=== PATIENT | female | born 1985 | race Hispanic/Latino ===

== ENCOUNTER 2016-11-22 12:41 | Inpatient (IN) | payer MEDICAID, OTHER ==
[2016-11-22 12:41] VITALS: BMI 24.1
--- NOTE | 2016-11-22 13:17 | C.PDOC ---
History Of Present Illness 31 y/o female presents to ED requesting Detox from heroin. Patient is pre- screened and admits to last using Heroin this morning. Patient denies fever, chills, n/v/d or any other complaints at this time. Time Seen by Provider: 11/22/16 12:58 Chief Complaint (Nursing): Substance Abuse History Per: Patient History/Exam Limitations: no limitations Onset/Duration Of Symptoms: Days Current Symptoms Are (Timing): Still Present Suicide/Self Injury Attempted (Context): None Past Medical History Reviewed: Historical Data, Nursing Documentation, Vital Signs Vital Signs: Last Vital Signs Temp 97.8 F 11/22/16 12:45 Pulse 89 11/22/16 15:34 Resp 18 11/22/16 15:34 BP 98/59 L 11/22/16 15:34 Pulse Ox 98 11/22/16 15:57 - Medical History PMH: Back Problems - [facility] Procedures ALCOHOL DETOXIFICATION (01/05/14) APPLICATION OF SPLINT (02/18/07) CLOSE RED-INT FIX FINGER (06/08/98) DETOXIFICATION SERVICES FOR SUBSTANCE ABUSE TREATMENT (04/18/16) INJECT/INFUSE NEC (09/20/05) SUTURE EXT EAR LAC (09/20/05) TETANUS TOXOID ADMINIST (03/01/14) Family History: States: No Known Family Hx - Social History Hx Tobacco Use: Yes Hx Alcohol Use: No Hx Substance Use: Yes - Immunization History Hx Tetanus Toxoid Vaccination: No Hx Influenza Vaccination: No Hx Pneumococcal Vaccination: No Review Of Systems Except As Marked, All Systems Reviewed And Found Negative. Constitutional: Negative for: Fever, Chills Gastrointestinal: Negative for: Nausea, Vomiting, Diarrhea Skin: Negative for: Rash Psych: Negative for: Anxiety, Suicidal ideation Physical Exam - Physical Exam Appears: Non-toxic, No Acute Distress Skin: Normal Color, Warm Head: Atraumatic Oral Mucosa: Moist Chest: Symmetrical Cardiovascular: Rhythm Regular Respiratory: Normal Breath Sounds, No Rales, No Rhonchi, No Wheezing Gastrointestinal/Abdominal: Soft, No Tenderness, No Guarding, No Rebound Neurological/Psych: Oriented x3, Normal Speech Gait: Steady ED Course And Treatment - Laboratory Results Result Diagrams: 11/22/16 13:34 11/22/16 13:34 Lab Interpretation: Normal O2 Sat by Pulse Oximetry: 98 (RA) Pulse Ox Interpretation: Normal Progress Note: Case discussed and patient evaluated by crisis who request admission to detox Medical Decision Making Medical Decision Making: Plan: * Labs Disposition Discussed With Dr.: Charlotte Antony Doctor Will See Patient In The: Hospital - Disposition Disposition: HOSPITALIZED Disposition Time: 16:00 Condition: STABLE - POA Present On Arrival: None - Clinical Impression Clinical Impression: Drug abuse, Opioid abuse, Opioid dependence - Scribe Statement The provider has reviewed the documentation as recorded by the Westleyibnivia Aguilar All medical record entries made by the Scribe were at my direction and personally dictated by me. I have reviewed the chart and agree that the record accurately reflects my personal performance of the history, physical exam, medical decision making, and the department course for this patient. I have also personally directed, reviewed, and agree with the discharge instructions and disposition. Decision To Admit - Pt Status Changed To: Hospital Disposition Of: Inpatient - Admit Certification Admit to Inpatient:: After my assessment, the patient will require hospitalization for at least two midnights. This is because of the severity of symptoms shown, intensity of services needed, and/or the medical risk in this patient being treated as an outpatient. - InPatient: Physician Admission Certification: I certify that this patient requires 2 or more midnights of care for the following reason:: Opiod Abuse - . Bed Request Type: Detox Admitting Physician: Charlotte Antony Patient Diagnosis: Drug abuse, Opioid abuse, Opioid dependence
[2016-11-22 13:37] LABS: BASO % 0.6 % (0.0-2.0); EOS # 0.2 K/uL (0.0-0.7); EOS % 2.2 % (0.0-4.0); HEMOGLOBIN 12.4 g/dL (11.0-16.0); LYMPH # 3.4 K/uL (1.0-4.3); LYMPH % 41.3 % (20.0-40.0); MEAN CORPUSCULAR HGB CONC 34.2 g/dL (33.0-37.0); MEAN PLATELET VOLUME 8.7 fL (7.2-11.7); MONO # 0.6 K/uL (0.0-0.8); NEUT # 4.1 K/uL (1.8-7.0); NEUT % 48.9 % (50.0-75.0); NRBC % 0.1 % (0.0-2.0); RBC 4.13 Mil/uL (3.80-5.20); RED CELL DISTRIBUTION WIDTH 13.1 % (11.5-14.5); WHITE BLOOD COUNT 8.3 K/uL (4.8-10.8)
[2016-11-22 13:39] LABS: MEAN CELL VOLUME 87.8 fL (81.0-99.0)
[2016-11-22 13:48] LABS: HCG,QUALITATIVE URINE NEGATIVE (NEGATIVE)
[2016-11-22 13:51] LABS: ALB/GLOB RATIO 1.2 (1.0-2.1); ALBUMIN 3.6 g/dL (3.5-5.0); ALT/SGPT 31 U/L (9-52); AST/SGOT 29 U/L (14-36); BLOOD UREA NITROGEN 14 mg/dL (7-17); CALCIUM 8.8 mg/dl (8.6-10.4); GFR AFRICAN-AMERICAN > 60; GFR NON-AFRICAN AMERICAN > 60
[2016-11-22 13:52] LABS: SQUAMOUS EPITHIAL 7 /hpf (0-5); URINE BACTERIA RARE (<OCC); URINE BILIRUBIN 2+ (NEGATIVE); URINE BLOOD NEGATIVE (NEGATIVE); URINE CALCIUM OXALATE CRYSTALS OCC /hpf (<OCC); URINE CLARITY Hazy (Clear); URINE COLOR Amber (YELLOW); URINE GLUCOSE (UA) NORMAL (Normal); URINE LEUKOCYTE ESTERASE TRACE Leu/uL (Negative); URINE NITRATE NEGATIVE (NEGATIVE); URINE PROTEIN 2+ mg/dL (NEGATIVE)
[2016-11-22 14:00] LABS: BARBITURATES, UR NEGATIVE (NEGATIVE)
[2016-11-22 14:01] LABS: PHENCYCLIDINE, UR NEGATIVE (NEGATIVE)
[2016-11-22 15:03] LABS: OPIATES, UR POSITIVE (NEGATIVE)
[2016-11-22 15:34] VITALS: RESP 18
[2016-11-22 15:40] LABS: BENZODIAZEPINES, UR POSITIVE (NEGATIVE)
[2016-11-22] MEDS ORDERED: Aluminum Hydroxide/Magnesium Hydroxide Susp (30 mL) PO PRN (17:05)
[2016-11-22] MEDS ORDERED: Benzocaine Gel 7.5% MM PRN (17:29)
--- NOTE | 2016-11-22 18:29 | PCM.BM ---
<Shakira Ferrara - Last Filed: 11/22/16 20:27> Treatment Plan Problems - Problems identified on initial assessmt Ineefective Coping Date Initiated: 11/22/16 Time Initiated: 18:29 Assessment reference: NA Status: Active Priority: 2 Anxiety related to Substance Use Date Initiated: 11/22/16 Time Initiated: 18:28 Assessment reference: NA Status: Active Priority: 1 - Milieu Protocol Maintain good personal hygiene: daily Encourage regular showers, daily Remind patient to perform daily oral care Conduct patient checks and document Observation sheet: Q15 minutes Maintain personal safety: every shift Educate patient to report safety concerns to staff, every shift Monitor environment for contraband/sharps Medication safety: Monitor for expected outcome, potential side effects: every shift, Assess barriers to learning: every shift, Assess readiness for medication education: every shift <Lesa Aldana - Last Filed: 11/23/16 12:08> Treatment Plan Problems - Problems identified on initial assessmt Ineefective Coping Date Initiated: 11/22/16 Time Initiated: 18:29 Assessment reference: NA Status: Active Priority: 2 Anxiety related to Substance Use Date Initiated: 11/22/16 Time Initiated: 18:28 Assessment reference: NA Status: Active Priority: 1 Anxiety related to Substance Abuse Date Initiated: 11/22/16 Time Initiated: 18:28 Assessment reference: NA Status: Active Priority: 1 Family Contact Family involvement: Famliy/SO not involved Family contact: Patient agrees to contact - Goals for Treatment Patient goals for treatment: Resume IOP at [facility]. Discharge/Continuing Care - Education Needs Education Needs: Patient Medication, Patient Diagnosis/Disease Process, Patient Coping Skills, Patient Placement options, Patient Community resources - Discharge Discharge Criteria: No longer exhibiting s/s of withdrawal, Reduction of target symptoms Discharge to:: Home - Treatment Team Participation Patient/Family/SO Statement: 11/23/16 12:10 "I just started an IOP program. I wanna go back to that". Discussed with Family/SO: No Was Patient/Family/SO present at Treatment Team Meeting: Yes <Charlotte Antony - Last Filed: 11/23/16 23:47> - Diagnosis (1) Opioid dependence Status: Chronic Interventions: 11/23/16 23:47 * Assess 7x/week regarding severity of withdrawal * Educate regarding risks, benefits, side effects and alternatives of medications * Use Motivational Interviewing for abstinence * Use CBT for relapse prevention * Medication management for withdrawal symptoms * Encourage medication assisted treatment *
[2016-11-22] MEDS ORDERED: Benzocaine 10% Oral Anesthetic (12 ml) MM PRN (18:30)
[2016-11-23] MEDS ORDERED: Buprenorphine Hydrochloride 2 mg SL ONE ×2 (11:00→12:00)
--- NOTE | 2016-11-23 14:50 | PCM.PSYCH ---
Initial Psychiatric Evaluation - Initial Psychiatric Evaluation Type of Admission: Voluntary Legal Status: Capacity Chief Complaint (in patient's own words): "I want to get clean." History of Present Illness and Precipitating Events: The patient was seen and discussed with the team and the chart was reviewed. A 31 yo female presented to the ED requesting heroin detox. The patient is not currently experiencing wxs sxs. She states that uses less than 5 bags/day of heroin, and denies using other drugs. She states that she last used at 9 am yesterday morning. The patient states that she had a detox experience at [facility] in April. The patient states that she went to [facility] for 21 days after detox and relapsed in August because of stress from family members getting sick. Psychiatric Hx: Admits to smoking tobacco, unspecified amounts; denies alcohol, cocaine, benzodiazepines; went to anger management counseling last August but is not currently enrolled. Social Hx: Single; no children; lives with grandmother in [place]; past employment at a [employer]; was incarcerated for unspecified reasons in August/September and in a welfare program after. Past Medical Hx: none, negative for Hep C Family Hx: none Family Psychiatric Hx: none Current Medications: Active Medications Generic Name Dose Route Start Last Admin Trade Name Freq PRN Reason Stop Dose Admin Al Hydrox/Mg Hydrox/Simethicone 30 ml 11/22/16 17:05 Maalox 30 Ml PO TID PRN Indigestion / Heartburn Benzocaine 0 ml 11/22/16 18:30 11/22/16 22:08 Anbesol MM 12 ml Q6 PRN Administration FOR TOOTHACHE Clonidine HCl 0.1 mg 11/22/16 17:05 Catapres PO Q8 PRN COWS Score More or Equal to 5 Gabapentin 100 mg 11/22/16 18:00 11/23/16 14:16 Neurontin PO 100 mg TID VICK Administration Hydroxyzine HCl 25 mg 11/22/16 17:05 11/22/16 22:07 Atarax PO 25 mg Q4H PRN Administration Anxiety Ibuprofen 600 mg 11/22/16 17:07 11/23/16 09:04 Motrin Tab PO 600 mg Q6H PRN Administration Pain, moderate (4-7) Loperamide HCl 2 mg 11/22/16 17:05 Imodium PO Q8 PRN Diarrhea Ondansetron HCl 4 mg 11/22/16 17:05 Zofran Tab PO Q8 PRN Nausea/Vomiting Trazodone HCl 50 mg 11/22/16 17:05 11/22/16 22:07 Desyrel PO 50 mg HS PRN Administration Insomnia Past Psychiatric History - Past Psychiatric History Previous Treatment History: Intensive Outpatient Pertinent Medical Hx (Current Medical&Sleep Prob, Allergies): Allergies Allergy/AdvReac Type Severity Reaction Status Date / Time No Known Allergies Allergy Verified 11/22/16 12:48 No Known Home Med 11/22/16 Review of Systems - Neurological Neurological: As Per HPI - Psychiatric Psychiatric: As Per HPI, Abnormal Sleep Pattern Mental Status Examination - Personal Presentation Personal Presentation: Looks stated age - Affect Affect: Constricted - Motor Activity Motor Activity: Calm - Reliability in Providing Information Reliability in Providing Information: Good - Speech Speech: Organized - Mood Mood: Neutral - Formal Thought Process Formal Thought Process: No Impairment - Obsessions/Compulsions Obsessions: No Compulsions: No - Cognitive Functions Orientation: Person, Place, Situation, Time Sensorium: Alert Attention/Concentration: Attentive Abstract Thinking: [place] Estimate of Intelligence: Average Judgement: Intact, as evidence by: Insight regarding need for hospitalization Memory: Recent intact, as evidence by: Ability to recall events of the day, Remote intact, as evidenced by: Abilit to recall sig. life events - Risk Risk: Withdrawal, Diminished functioning - Strength & Assets Inventory Strength & Assets Inventory: Family support, Employment history, Cooperative DSM 5 DX - DSM 5 DSM 5 Diagnosis: Opioid withdrawal Opioid use d/o tobacco use d/o - mild - Recommended/Plan of Treatment Treatment Recommendations and Plan of Treatment: Subutex, short detox Gabapentin for augmentation As needed meds and vitamins Attend groups and activities LA for abstinence and CBT for relapse prevention Support and psychoeducation Consider and encourage MAT Refer to after care; coordinate with SW 33 min Projected ELOS: 3 days Prognosis: Good with tx
--- NOTE | 2016-11-24 08:47 | PCM.PYCHDC ---
Mental Status Examination - Mental Status Examination Orientation: Person, Place, Situation, Time Memory: Intact Mood: Anxious Affect: Constricted Speech: Appropriate Attention: WNL Concentration: WNL Association: WNL Fund of Knowledge: WNL Formal Thought Process: No Impairment Suicidal Ideation: No Current Homicidal Ideation?: No Discharge Summary - Discharge Note Reason for Hospitalization: Opioid detox Consultations:: List each consultation separately and include: 1. Reason for request. 2. Findings. 3. Follow-up Summary of Hospital Course include:: 1. Description of specific treatment plan utilized for patients during their course of treatmen. 2. Summarize the time- course for resolution of acute symptoms and/or regressed behaviors. 3. Describe issues identified and worked on during hospitalization. 4. Describe medication utilized. 5. Describe medical problems identified and treated. 6. Reassessment of suicide risk Summary of Hospital Course: The patient was seen and discussed with the team and the chart was reviewed. A 31 yo female presented to the ED requesting heroin detox. The patient is not currently experiencing wxs sxs. She states that uses less than 5 bags/day of heroin, and denies using other drugs. She states that she last used at 9 am yesterday morning. The patient states that she had a detox experience at [facility] in April. The patient states that she went to [facility] for 21 days after detox and relapsed in August because of stress from family members getting sick. Psychiatric Hx: Admits to smoking tobacco, unspecified amounts; denies alcohol, cocaine, benzodiazepines; went to anger management counseling last August but is not currently enrolled. Social Hx: Single; no children; lives with grandmother in [place]; past employment at a [employer]; was incarcerated for unspecified reasons in August/September and in a welfare program after. Past Medical Hx: none, negative for Hep C Family Hx: none Family Psychiatric Hx: none Hospital course: The pt was admitted and started on treatment with psychotherapy, support, psychoeducation and medications. MA and CBT used. The pt attended one group and activity, as well as milieu therapy. All the risks and benefits of medications are discussed and the patient understood and agreed. After care discussed with the patient. The patient had some wdw sxs at night but refused subutex or any meds, and the next days she asked to leave. She said she just finished detox elsewhere but since she relapsed she wanted to be safe and came. However, she now wants out. Risks of leaving early , incl. more wdw sxs, relapse, OD and discussed. She understood but still wanted to leave. - Final Diagnosis (DSM 5) Condition upon Discharge: STABLE DSM 5: Opioid use d/o - severe Disposition: HOME/ ROUTINE Follow-up Treatment Plan: Continue below meds Follow after care plan as discussed above. Use relapse prevention skills. Return to ER or call 911 if suicidal, homicidal or symptoms relapse. Stay away from stress, alcohol and drugs. Use relaxation techniques. See primary doctor once a year and get labs. Consider MAT Prescriptions/Medication Reconciliation: Gabapentin [Neurontin] 100 mg PO TID #90 cap traZODone [Desyrel] 50 mg PO HS PRN #30 tab PRN Reason: Insomnia - Smoking Cessation Smoking Cessation Medication prescribed: No - Antipsychotic Medications Pt discharged on 2 or more routine antipsychotic medications: No
[2016-11-24 09:13] VITALS: BP 133/80; PULSE 85; TEMP 98.4; O2SAT 98
== END 2016-11-24 09:45 | disposition home or self-care (01) | DRG 745 ==
LOC: C.ER 12:41 → C.7D 15:58
PROVIDERS: ADMIT Psychiatry & Neurology Psychiatry; ATTEND Psychiatry & Neurology Psychiatry
DX: F11.23 Opioid dependence with withdrawal (principal); F17.210 Nicotine dependence, cigarettes, uncomplicated

== ENCOUNTER 2017-12-31 19:30 | Inpatient (IN) | payer MEDICAID ==
[2017-12-31 19:30] VITALS: BMI 24.1
--- NOTE | 2017-12-31 19:54 | C.PDOC ---
History Of Present Illness 32-year-old female, presents to the emergency department requesting detox from heroin. Patients last use was prior to arrival. She denies nausea/vomiting, SI/ HI. Time Seen by Provider: 12/31/17 19:54 Chief Complaint (Nursing): Substance Abuse History Per: Patient History/Exam Limitations: no limitations Past Medical History Reviewed: Historical Data, Nursing Documentation, Vital Signs Vital Signs: Last Vital Signs Temp 98.1 F 12/31/17 19:42 Pulse 103 H 12/31/17 19:42 Resp 20 12/31/17 19:42 BP 122/81 12/31/17 19:42 Pulse Ox 96 12/31/17 21:06 - Medical History PMH: Back Problems - [facility] Procedures ALCOHOL DETOXIFICATION (01/05/14) APPLICATION OF SPLINT (02/18/07) CLOSE RED-INT FIX FINGER (06/08/98) DETOXIFICATION SERVICES FOR SUBSTANCE ABUSE TREATMENT (04/18/16) INJECT/INFUSE NEC (09/20/05) SUTURE EXT EAR LAC (09/20/05) TETANUS TOXOID ADMINIST (03/01/14) Family History: States: No Known Family Hx - Social History Hx Tobacco Use: Yes Hx Alcohol Use: Yes Hx Substance Use: Yes - Immunization History Hx Tetanus Toxoid Vaccination: No Hx Influenza Vaccination: No Hx Pneumococcal Vaccination: No Review Of Systems Except As Marked, All Systems Reviewed And Found Negative. Psych: Negative for: Psychosis, Suicidal ideation, Withdrawal Physical Exam - Physical Exam Appears: Non-toxic, No Acute Distress Skin: Warm, Dry, No Rash Head: Atraumatic, Normacephalic Eye(s): bilateral: Normal Inspection Nose: Normal Oral Mucosa: Moist Lips: Normal Appearing Neck: Normal ROM Cardiovascular: Rhythm Regular, No Murmur Respiratory: Normal Breath Sounds, No Accessory Muscle Use Back: Normal Inspection Extremity: Normal ROM, No Deformity Neurological/Psych: Oriented x3, Normal Speech ED Course And Treatment - Laboratory Results Result Diagrams: 12/31/17 20:18 12/31/17 20:18 O2 Sat by Pulse Oximetry: 96 Pulse Ox Interpretation: Normal (RA) Disposition Discussed With : Charlotte Antony Comment: accepted the pt on his service and took over the care at 9:35 PM Doctor Will See Patient In The: Hospital Counseled Patient/Family Regarding: Studies Performed, Diagnosis - Disposition Disposition: HOSPITALIZED Disposition Time: 19:54 Condition: FAIR Forms: [facility] (Chinese) - POA Present On Arrival: Poor Glycemic Control - Clinical Impression Clinical Impression: Opioid use disorder - Scribe Statement The provider has reviewed the documentation as recorded by the Scribe (Kodi Brooks) Provider Attestation: All medical record entries made by the Scribe were at my direction and personally dictated by me. I have reviewed the chart and agree that the record accurately reflects my personal performance of the history, physical exam, medical decision making, and the department course for this patient. I have also personally directed, reviewed, and agree with the discharge instructions and disposition. Decision To Admit - Pt Status Changed To: Hospital Disposition Of: Inpatient - Admit Certification Admit to Inpatient:: After my assessment, the patient will require hospitalization for at least two midnights. This is because of the severity of symptoms shown, intensity of services needed, and/or the medical risk in this patient being treated as an outpatient. - InPatient: Physician Admission Certification: I certify that this patient requires 2 or more midnights of care for the following reason:: After my assessment, the patient will require hospitalization for at least two midnights. This is because of the severity of symptoms shown, intensity of services needed, and/or the medical risk in this patient being treated as an outpatient. - . Bed Request Type: Detox Admitting Physician: Charlotte Antony Patient Diagnosis: Opioid use disorder
[2017-12-31 20:29] LABS: BASO # 0.1 K/uL (0.0-0.2); BASO % 0.7 % (0.0-2.0); EOS # 0.4 K/uL (0.0-0.7); EOS % 3.5 % (0.0-4.0); HEMOGLOBIN 13.9 g/dL (11.0-16.0); LYMPH # 3.3 K/uL (1.0-4.3); LYMPH % 31.9 % (20.0-40.0); MEAN CELL VOLUME 85.2 fL (81.0-99.0); MEAN CORPUSCULAR HEMOGLOBIN 29.2 pg (27.0-31.0); MEAN CORPUSCULAR HGB CONC 34.3 g/dL (33.0-37.0); MEAN PLATELET VOLUME 8.7 fL (7.2-11.7); MONO # 0.8 K/uL (0.0-0.8); MONO % 7.5 % (0.0-10.0); NEUT # 5.9 K/uL (1.8-7.0); NEUT % 56.4 % (50.0-75.0); RBC 4.74 Mil/uL (3.80-5.20); WHITE BLOOD COUNT 10.5 K/uL (4.8-10.8)
[2017-12-31 20:29] LABS: BARBITURATES, UR NEGATIVE (NEGATIVE); BENZODIAZEPINES, UR NEGATIVE (NEGATIVE); PHENCYCLIDINE, UR NEGATIVE (NEGATIVE)
[2017-12-31 20:32] LABS: SQUAMOUS EPITHIAL 2 /hpf (0-5); URINE BACTERIA RARE (<OCC); URINE BILIRUBIN NEGATIVE (NEGATIVE); URINE BLOOD NEGATIVE (NEGATIVE); URINE CLARITY Clear (Clear); URINE COLOR Yellow (YELLOW); URINE GLUCOSE (UA) NORMAL (Normal); URINE LEUKOCYTE ESTERASE NEG Leu/uL (Negative); URINE PROTEIN 1+ mg/dL (NEGATIVE); URINE UROBILINOGEN NORMAL mg/dL (0.2-1.0)
[2017-12-31 20:33] LABS: OPIATES, UR POSITIVE (NEGATIVE)
[2017-12-31 20:43] LABS: ALB/GLOB RATIO 1.5 (1.0-2.1); ALBUMIN 5.4 g/dL (3.5-5.0); ALT/SGPT 36 U/L (9-52); AST/SGOT 26 U/L (14-36); BLOOD UREA NITROGEN 24 mg/dL (7-17); GFR NON-AFRICAN AMERICAN > 60
--- NOTE | 2017-12-31 21:47 | PCM.BM ---
<Sam Sommer - Last Filed: 12/31/17 21:46> Treatment Plan Problems - Problems identified on initial assessmt potential elan mcleod withdrawal Date Initiated: 12/31/17 Time Initiated: 21:47 Status: Active Treatment assets and liabiliti Patient Assests: cognitively intact Patient Liabilities: substance abuse - Milieu Protocol Maintain good personal hygiene: daily Encourage regular showers, daily Remind patient to perform daily oral care, daily Assist patient to perform ADL's Conduct patient checks and document Observation sheet: Q15 minutes Maintain personal safety: every shift Educate patient to report safety concerns to staff, every shift Monitor environment for contraband/sharps Medication safety: Monitor for expected outcome, potential side effects: every shift, Assess barriers to learning: every shift, Assess readiness for medication education: every shift <Charlotte Antony - Last Filed: 01/02/18 00:46> - Diagnosis (1) Opioid use disorder Status: Acute Interventions: 01/02/18 00:46 * Assess 7x/week regarding severity of withdrawal * Educate regarding risks, benefits, side effects and alternatives of medications * Use Motivational Interviewing for abstinence * Use CBT for relapse prevention * Medication management for withdrawal symptoms * Encourage medication assisted treatment *
[2017-12-31] MEDS ORDERED: Potassium Chloride 10 mEq ER Tab PO STA (21:53)
[2017-12-31] MEDS ORDERED: Aluminum Hydroxide/Magnesium Hydroxide Susp (30 mL) PO PRN (22:55)
--- NOTE | 2018-01-01 16:43 | PCM.PSYCH ---
Initial Psychiatric Evaluation - Initial Psychiatric Evaluation Type of Admission: Voluntary Legal Status: Capacity Chief Complaint (in patient's own words): I want to detox off these drugs History of Present Illness and Precipitating Events: PT is a 32 y/o CF currently living with her father at home. pt is and has no children and does not work Pt came into the hospital yesterday wanting to detox of heroin and cocaine. pt has been on heroin for the past 4 years, average use of 40 bags per day intravenously. pt last usage was yesterday. pt has been snorting cocaine since she was 26 y/o. pt states she does approximately 0.5g of cocaine per day, last usage was 3 days ago. pt's longest sobriety was 5 months at a rehab facility and she relapsed 1 month ago due to illness in the family. Pt denies depressed mood, feelings of guilt, fatigue, concentration problems, decreased appetite, anhedonia, SI/HI. Pt denies racing thoughts, manic episodes. Pt denies auditory, visual or tactile hallucinations. Pt smokes 10 cigs/day. pt denies any alcohol, marijuana, or other substance abuse. Psych Hx: denies Traumatic Hx: denies Family psych Hx: Mother has hx of bipolar disorder and substance abuse Father has hx of Lung cancer and alcohol abuse Medical Hx: denies Legal Hx: hx of parole violation, vehicular homicide, and damaging property. Current Medications: Active Medications Generic Name Dose Route Start Last Admin Trade Name Freq PRN Reason Stop Dose Admin Al Hydrox/Mg Hydrox/Simethicone 30 ml 12/31/17 22:55 Maalox 30 Ml PO TID PRN Indigestion / Heartburn Clonidine HCl 0.1 mg 12/31/17 22:55 Catapres PO Q8 PRN COWS Score More or Equal to 5 Gabapentin 300 mg 01/01/18 10:00 01/01/18 09:44 Neurontin PO 300 mg BID VICK Administration Hydroxyzine HCl 25 mg 12/31/17 22:55 Atarax PO Q4H PRN Anxiety Ibuprofen 600 mg 12/31/17 22:56 Motrin Tab PO Q6H PRN Pain, moderate (4-7) Loperamide HCl 2 mg 12/31/17 22:55 Imodium PO Q8 PRN Diarrhea Ondansetron HCl 4 mg 12/31/17 22:55 Zofran Tab PO Q8 PRN Nausea/Vomiting Trazodone HCl 50 mg 12/31/17 22:55 Desyrel PO HS PRN Insomnia Past Psychiatric History - Past Psychiatric History Pertinent Medical Hx (Current Medical&Sleep Prob, Allergies): Allergies Allergy/AdvReac Type Severity Reaction Status Date / Time No Known Allergies Allergy Verified 11/22/16 12:48 No Known Home Med 12/31/17 Review of Systems - Psychiatric Psychiatric: Abnormal Sleep Pattern, Anxiety, Difficulty Concentrating, Irritability, Mood Swings. absent: Hallucinations, Homicidal Ideation, Paranoia , Suicidal Ideation Mental Status Examination - Personal Presentation Personal Presentation: Looks stated age - Affect Affect: Broad - Motor Activity Motor Activity: Calm - Reliability in Providing Information Reliability in Providing Information: Good - Speech Speech: Organized - Mood Mood: Anxious - Formal Thought Process Formal Thought Process: No Impairment - Obsessions/Compulsions Obsessions: No Compulsions: No - Cognitive Functions Orientation: Person, Place, Situation, Time Sensorium: Alert Attention/Concentration: Easily distracted Estimate of Intelligence: Average Judgement: Intact, as evidence by: Insight regarding need for hospitalization Memory: Recent intact, as evidence by: Ability to recall events of the day, Remote intact, as evidenced by: Abilit to recall sig. life events - Risk Risk: Withdrawal, Diminished functioning - Strength & Assets Inventory Strength & Assets Inventory: Cooperative - Limitations Limitations: Other DSM 5 DX - DSM 5 DSM 5 Diagnosis: Opioid Use Disorder, severe Opioid Withdrawal Cocaine Use Disorder - Recommended/Plan of Treatment Treatment Recommendations and Plan of Treatment: Subutex for withdarwal As need medications All risks, benefits and alternatives of the meds discussed, and the pt agreed and understood. Attend groups and activities Individual therapy daily Psychoeducation and support daily Encourage compliance with meds and after care Refer to outpatient program Teach healthy lifestyle methods, i.e. diet, exercise, meditation Smoking cessation, nicotine patch as needed 35mins Projected ELOS: 3-4 days
[2018-01-01 17:30] VITALS: RESP 18
[2018-01-01] MEDS ORDERED: Vitamins A & D Oint UD Foilpak TOP PRN (20:49)
[2018-01-02 06:42] VITALS: BP 104/65; PULSE 98; TEMP 98.2; O2SAT 98
--- NOTE | 2018-01-02 08:52 | PCM.PYCHDC ---
Mental Status Examination - Mental Status Examination Orientation: Person Discharge Summary - Discharge Note Consultations:: List each consultation separately and include: 1. Reason for request. 2. Findings. 3. Follow-up Summary of Hospital Course include:: 1. Description of specific treatment plan utilized for patients during their course of treatmen. 2. Summarize the time- course for resolution of acute symptoms and/or regressed behaviors. 3. Describe issues identified and worked on during hospitalization. 4. Describe medication utilized. 5. Describe medical problems identified and treated. 6. Reassessment of suicide risk Summary of Hospital Course: PT is a 32 y/o CF currently living with her father at home. pt is and has no children and does not work Pt came into the hospital yesterday wanting to detox of heroin and cocaine. pt has been on heroin for the past 4 years, average use of 40 bags per day intravenously. pt last usage was yesterday. pt has been snorting cocaine since she was 26 y/o. pt states she does approximately 0.5g of cocaine per day, last usage was 3 days ago. pt's longest sobriety was 5 months at a rehab facility and she relapsed 1 month ago due to illness in the family. Pt denies depressed mood, feelings of guilt, fatigue, concentration problems, decreased appetite, anhedonia, SI/HI. Pt denies racing thoughts, manic episodes. Pt denies auditory, visual or tactile hallucinations. Pt smokes 10 cigs/day. pt denies any alcohol, marijuana, or other substance abuse. Psych Hx: denies Traumatic Hx: denies Family psych Hx: Mother has hx of bipolar disorder and substance abuse Father has hx of Lung cancer and alcohol abuse Medical Hx: denies Legal Hx: hx of parole violation, vehicular homicide, and damaging property. - Diagnosis (1) Opioid use disorder Current Visit: Yes Status: Acute - Final Diagnosis (DSM 5) Condition upon Discharge: FAIR Disposition: AGAINST MEDICAL ADVICE Follow-up Treatment Plan: Subutex for withdarwal As need medications All risks, benefits and alternatives of the meds discussed, and the pt agreed and understood. Attend groups and activities Individual therapy daily Psychoeducation and support daily Encourage compliance with meds and after care Refer to outpatient program Teach healthy lifestyle methods, i.e. diet, exercise, meditation Smoking cessation, nicotine patch as needed 35mins
== END 2018-01-02 09:08 | disposition left against medical advice (07) | DRG 743 ==
LOC: C.ER 19:30 → C.7D 21:33
PROVIDERS: ADMIT Psychiatry & Neurology Psychiatry; ATTEND Psychiatry & Neurology Psychiatry
PROC: HZ2ZZZZ Detoxification Services for Substance Abuse Treatment (ICD-10-PCS; principal; 2017-12-31)
PROC: HZ52ZZZ Individual Psychotherapy for Substance Abuse Treatment, Cognitive-Behavioral (ICD-10-PCS; 2017-12-31)
PROC: HZ59ZZZ Individual Psychotherapy for Substance Abuse Treatment, Supportive (ICD-10-PCS; 2017-12-31)
PROC: HZ56ZZZ Individual Psychotherapy for Substance Abuse Treatment, Psychoeducation (ICD-10-PCS; 2017-12-31)
PROC: HZ42ZZZ Group Counseling for Substance Abuse Treatment, Cognitive-Behavioral (ICD-10-PCS; 2017-12-31)
PROC: HZ46ZZZ Group Counseling for Substance Abuse Treatment, Psychoeducation (ICD-10-PCS; 2017-12-31)
DX: F11.23 Opioid dependence with withdrawal (principal); F14.10 Cocaine abuse, uncomplicated; F17.210 Nicotine dependence, cigarettes, uncomplicated; G47.00 Insomnia, unspecified; F41.9 Anxiety disorder, unspecified; Z81.4 Family history of other substance abuse and dependence